=== PATIENT | male | born 1955 | race Caucasian/White ===

== ENCOUNTER 2019-03-02 23:10 | Emergency (ER) | payer OTHER ==
[~2019-03-02] VITALS: Ht 177.8 cm; Wt 72.6 kg
[2019-03-02 23:28] VITALS: Ht 177.8 cm; Wt 72.6 kg
[2019-03-03 00:53] VITALS: BP 62/38
[2019-03-03 01:27] LABS: PLATELET COUNT 181 x10^3mcL (130-400); RED CELL DISTRIBUTION WIDTH 14.5 % (11.5-14.5)
[2019-03-03 01:36] LABS: BILIRUBIN TOTAL 0.4 mg/dL (0.20-1.00); CALCIUM 7.8 mg/dL (8.5-10.1); CARBON DIOXIDE 25.7 mmol/L (21-32); CREATININE SERUM 1.5 mg/dL (0.7-1.3)
[2019-03-03 01:39] LABS: ALBUMIN 2.2 g/dL (3.4-5.0); TOTAL PROTEIN, SERUM 4.6 g/dL (6.4-8.2)
[2019-03-03 01:41] LABS: POTASSIUM SERUM 5.9 mmol/L (3.5-5.1)
[2019-03-03 01:50] VITALS: BP 66/52
[2019-03-03 02:02] LABS: BAND NEUTROPHIL 2 % (0-10); MONOCYTE 6 % (0-7); SEGMENTED NEUTROPHILS 77 % (37-75)
[2019-03-03 02:05] LABS: acanthocyte (spur cell) 1+; rbc morphology (normal/abnorm) ABNORMAL (NORMAL); tear drop cell (dacryocyte) 1+
[2019-03-03 02:06] LABS: PLATELET MORPHOLOGY PLATELETS NORMAL
[2019-03-03 03:38] VITALS: BP 126/70
== END 2019-03-03 03:35 | disposition short-term general hospital (02) ==
LOC: ED 23:10
PROVIDERS: Emergency Medicine
DX: J93.0 Spontaneous tension pneumothorax (principal); R58 Hemorrhage, not elsewhere classified; E11.9 Type 2 diabetes mellitus without complications
CPT/HCPCS: 32551; 83880; 90715; G0480; J0330; J2405; J2543; J2704; J3010; J3490; J7040; P9016; P9059; Q9967